=== PATIENT | male | born 1985 | race Native Hawaiian/Other Pacific Islander ===

== ENCOUNTER 2022-01-02 20:51 | Outpatient (CLI) | payer MEDICAID, SELFPAY | END 2022-01-02 20:52 | disposition home or self-care (01) | LOC: SLEEP 20:52 | PROVIDERS: PCP Student in an Organized Health Care Education/Training Program; Visit Provider Internal Medicine | DX: G47.33 Obstructive sleep apnea (adult) (pediatric) (principal); G47.10 Hypersomnia, unspecified | CPT/HCPCS: 95811 ==

== ENCOUNTER 2022-07-11 08:02 | Outpatient (CLI) | payer MEDICAID, SELFPAY ==
--- NOTE | 2022-07-11 08:15 | CRLHL7_ITS ---
For Patients: As a result of the Century Cures Act, medical imaging exams and procedure reports are released immediately into your electronic medical record. You may view this report before your referring provider. If you have questions, please contact your health care provider. Indication: Chronic left hip pain Technique: Left hip arthrogram for MRI Comparison: No comparison Findings: The indications risks and benefits were discussed with the patient who provided written and verbal informed consent. Time-out performed prior to starting procedure. Patient was prepped and draped in usual sterile manner. 3 cc 1 percent lidocaine was used for local anesthesia. 1ml contrast was used to confirm correct location. 12 mL of a combination point 2 mL gadolinium in 20 ml saline was injected into the left hip joint. Impression: Left hip arthrogram. One image saved 21 seconds fluoro time. Dictated by Whitney Rios MD @ 07/11/2022 9:43:18 AM (Electronically Signed)
--- NOTE | 2022-07-11 09:15 | MR_ITS ---
Final Report Patient: TREVOR WASHINGTON Facility:?[facility] Patient ID:?[id number] Site Patient ID:?[id number] Site :?[id number] Study:?XRay Hip Left INJECTION (DR RIOS TO READ)-07/11/2022 9:15:57 AM Ordering Physician:?Van Gallegos Final Report: Indication: Chronic left hip pain Technique: Left hip arthrogram for MRI Comparison: No comparison Findings: The indications risks and benefits were discussed with the patient who provided written and verbal informed consent. Time-out performed prior to starting procedure. Patient was prepped and draped in usual sterile manner. 3 cc 1 percent lidocaine was used for local anesthesia. 1ml contrast was used to confirm correct location. 12 mL of a combination point 2 mL gadolinium in 20 ml saline was injected into the left hip joint. Impression: Left hip arthrogram. One image saved 21 seconds fluoro time. Dictated by Whitney Rios MD @ 07/11/2022 9:43:18 AM (Electronic Signature)
== END 2022-07-11 08:03 | disposition home or self-care (01) ==
LOC: RAD 08:03
PROVIDERS: PCP Student in an Organized Health Care Education/Training Program; Visit Provider Family Medicine
DX: M25.552 Pain in left hip (principal); M25.852 Other specified joint disorders, left hip
CPT/HCPCS: 27093; 73525; 73722; 77002; A9575; Q9966

== ENCOUNTER 2024-03-18 07:30 | Outpatient (RCR) | payer BC, SELFPAY | END 2024-03-18 11:00 | disposition home or self-care (01) | PROVIDERS: PCP Student in an Organized Health Care Education/Training Program; Visit Provider Physician Assistant Surgical | DX: S63.092A Other subluxation of left wrist and hand, initial encounter (principal); Z74.09 Other reduced mobility; R53.1 Weakness; Z51.89 Encounter for other specified aftercare | CPT/HCPCS: 97110; 97140; 97530; L3763; L3919; X5282 ==

== ENCOUNTER 2024-07-13 19:20 | Outpatient (CLI) | payer BC, SELFPAY | END 2024-07-13 19:21 | disposition home or self-care (01) | PROVIDERS: PCP Student in an Organized Health Care Education/Training Program; Visit Provider Nurse Practitioner Family | DX: R53.83 Other fatigue (principal); R50.9 Fever, unspecified; R41.89 Other symptoms and signs involving cognitive functions and awareness; E55.9 Vitamin D deficiency, unspecified | CPT/HCPCS: 80053; 82306; 84443; 86140; 86618 ==

== ENCOUNTER 2025-03-03 20:35 | Emergency (ER) | payer BC, SELFPAY ==
--- OUTSIDE RECORDS SUMMARY | 2025-03-03 20:36 | XMS_ITS | Clinical Summary ---
Author Organization [facility] Address [address] [place] [id number] Care Team Providers Care Collaborating Supervising Physician Name Role Phone Milo Kaiser Primary Care Provider [phone] Allergies Active Allergy Reactions Criticality Noted Date Comments Amoxicillin *Unknown - Childhood Rxn 03/24/2019 Penicillins *Unknown - Childhood Rxn 03/24/2019 Medications CPAPIndications:OS A (obstructive sleep apnea) CPAP machine for home use at pressure 11 cmw, nasal mask x1/3month with nasal cushion x2/mo 1 Each 11 2 Active buPROPion (WELLBUTRIN XL) 300 mg Extended-Release tabletIndications: Depression, recurrent,Attentio n deficit hyperactivity disorder, combined type Take 1 Tablet (300 mg) by mouth once daily in the morning. 90 Tablet 3 4 Active busPIRone (BUSPAR) 15 mg tabletIndications: Anxiety Take 1 Tablet (15 mg) by mouth two times daily. 180 Tablet 3 4 Active naltrexone (REVIA) 50 mg tabletIndications: Alcohol use Take 2 Tablets (100 mg) by mouth once daily. 30 Tablet 3 5 Active buPROPion (WELLBUTRIN XL) 150 mg Extended-Release tabletIndications: Depression, recurrent Take 1 Tablet (150 mg) by mouth once daily in the morning. Take with 300 mg tablet. 90 Tablet 3 5 Active fenofibrate micronized (LOFIBRA) 200 mg capsuleIndications :Hypertriglyceride kari TAKE 1 CAPSULE(200 MG) BY MOUTH EVERY DAY WITH A MEAL 30 Capsule 5 Active dextroamphetamine- amphetamine (Adderall XR) 20 mg Extended-Release capsuleIndications :Attention deficit hyperactivity disorder, combined type Take 1 Capsule (20 mg) by mouth once daily. 30 Capsule 5 03/30/20 25 Active dextroamphetamine- amphetamine (Adderall XR) 20 mg Extended-Release capsuleIndications :Attention deficit hyperactivity disorder, combined type Take 1 Capsule (20 mg) by mouth once daily. 30 Capsule 5 02/29/20 25 Active Problems Problem Noted Date Diagnosed Date Subluxation of extensor carpi ulnaris tendon, le ft, sequela 11/08/2023 Adjustment disorder with depressed mood 06/05/19 22 Arthralgia of elbow 06/05/2021 Closed anterior dislocation of elbow 06/05/2021 Closed fracture of head of radius 06/05/2021 Attention deficit hyperactivity disorder, combin ed type 02/03/2021 Anxiety 05/30/2020 Depression, recurrent 05/30/2020 Encounters Date Type Department Care Team Description 02/28/2025 Travel 12/28/2024 7:15 AM CDT Office Visit [facility] [address] [place] [address] Milo Kaiser, Medication Management (Feels like medication changes are going well - cards in Nov, Sleep in Dec for upcoming visitd ) 12/27/2024 Travel 12/26/2024 Refill [facility] [address] [place] [address] Milo Kaiser DO Refill Request (Fenofibrate Micronized) 12/16/2024 Refill [facility] [address] [place] [address] Milo Kaiser, Refill Request (Fenofibrate Micronized) from Last 3 Months Immunizations Immunization Administration Dates Next Due COVID-19 VACCINE SPIKEVAX (M ODERNA 50MCG/0.5ML) 12YO+ PFS 05/24/2023 COVID-19 vaccine (PandoDaily-Bio NTech 30mcg/0.3mL) PF, MDV 04/03/2021 HepA-HepB (Twinrix) 03/26/2008,02/12/2008 Inactivated Polio Vaccine 03/26/2008 Influenza, IIV3 (Age >=3 years) 01/05/2021 Influenza, IIV4 05/24/2023,02/15/2020,03/02/2019 Influenza,CCIIV4 PRESERV FREE 01/15/2022 Meningococcal Vaccine (Menactra) 02/12/2008 Td (Age >=7 Years) 05/30/2020 Tdap 02/12/2008 Yellow Fever 03/26/2008 Family History Medical History Relation Name Comments Hyperlipidemia Father Thyroid Disease Father Hyperlipidemia Mother Relation Name Status Comments Father Alive Mother Alive Social History Tobacco Use Types Packs/Day Years Used Date Smoking Tobacco: Never Smokeless Tobacco: Never Tobacco Cessation:Counseling Given: Yes Alcohol Use Standard Drinks/Week Comments Yes 6 (1 standard drink = 0.6 oz pur e alcohol) 12/05/23 1.5 a week PHQ-2 Answer Date Recorded PHQ-2 TOTAL SCORE 2 12/28/2024 Social Connections Answer Date Recorded Do you often feel lonely or isolated from those around you? 4 02/24/2024 Alcohol Use Answer Date Recorded How often do you have a drink containing alcohol ? 3 12/28/2024 How many drinks containing a lcohol do you have on a typical day when you are drinking? 1 12/28/2024 How often do you have five or more drinks on one occasion? 1 12/28/2024 Financial Resource Strain Answer Date R ecorded Difficulty of Paying Living Expenses 3 02/24/2024 Difficulty of Paying Living Expenses Not on file 02/24/2024 Food Insecurity Answer Date Recorded Do you worry your food will run out before you are able to buy more? 1 02/24/2024 Transportation Needs Answer Date Record ed Does lack of transportation keep you from medica l appointments? 1 02/24/2024 Does lack of transportation keep you from work, meetings or getting things that you need? 1 02/24/2024 Housing Stability Answer Date Recorded What is your housing situation today? 1 02/24/2024 Utilities Answer Date Recorded Do you have trouble paying f or utilities (for example, heat, electricity, water, phone)? 1 02/24/2024 Sex and Gender Information Value Date Recorded Sex Assigned at Male 06/24/2020 4:05 PM WASTE HANDLING TECHNICIAN Legal Sex Male 10:43 AM WASTE HANDLING TECHNICIAN Gender Identity Male 06/24/2020 4:05 PM WASTE HANDLING TECHNICIAN Sexual Orientation Straight 06/24/2020 4: 05 PM WASTE HANDLING TECHNICIAN Obstetrics History Last Filed Vital Signs Vital Sign Reading Time Taken Comments Blood Pressure 128/88 12/28/2024 7:26 AM CDT Pulse 79 12/28/2024 7:26 AM CDT Temperature 36.4 C (97.5 F) 11/08/2023 11:02 AM CDT Respiratory Rate 18 11/08/2023 11:0 2 AM CDT Oxygen Saturation 97% 12/28/2024 7:26 AM CDT Inhaled Oxygen Concentration - - Weight 119.7 kg (263 lb 14.4 oz) 12/28/2024 7:26 AM CDT Height 175.6 cm (5' 9.13) 11/17/2024 7:26 AM CD T Body Mass Index 38.82 11/17/2024 7:26 AM CDT Plan of Treatment Upcoming Encounters Date Type Department Care Team (Late st Contact Info) Description 03/05/2025 7:00 AM WASTE HANDLING TECHNICIAN Orders Only [facility] [address] [place] [address] [place] 03/09/2025 3:30 PM WASTE HANDLING TECHNICIAN Office Visit [facility] [address] [place] [id number] Rosalba Jonhson MD [address] [facility] [address] [place] [address] 03/31/2025 8:30 AM WASTE HANDLING TECHNICIAN Office Visit [facility] [address] [place] [address] Corbin Cardenas MD [address] [place] [address] Health Maintenance Due Date Last Done Comments Hepatitis B series for 19+ (3 of 3 - Hep B Twinrix 3-dose series) 08/24/2008 03/26/2008, 02/12/2008 HPV series for age 9-45 (1 - 3-dose SCDM series) 2013 Influenza Vaccine (#1) 2024 , 01/15/2022, 01/05/2021, Additional history exists BMI (ht and wt on same day) for age 18+ 11/17/2025 11/17/2024, 05/19/2024, 10/15/2023, Additional history exists Depression screening for age 12+ 12/28/2025 12/28/2024, 05/19/2024, 05/08/2024, Additional history exists Lipids for age 35-44 11/25/2029 11/25/2024, 05/19/2024, 05/24/2023, Additional history exists Tetanus booster 05/30/2030 05/30/2020, 02/12/2008 RSV vaccine for adults or (1 - 1-dose 75+ series) 2061 HIV for age 15-65 Completed 05/21/2022 Hepatitis C screening for age 18-79 Completed 05/21/2022 Pneumococcal series for age 6-49 Aged Out No longer eligible based on patient's age to complete this topic Procedures Procedure Name Priority Date/Time Associated Diagnosis Comments LIPID PANEL W REFLEX MEASURED LDL Routine 11/25/2024 7:20 AM CDT Hypertriglyceridemia LC HIV-1/O/2, 4TH GENERATION Routine 05/21/2022 10:46 AM WASTE HANDLING TECHNICIAN Screening for HIV (human immunodeficiency virus) LC HCV ANTIBODY RFX TO QUANT PCR Routine 05/21/2022 10:46 AM WASTE HANDLING TECHNICIAN Need for hepatitis C screening test from Last 3 Months or Most Recently Relevant to Health Maintenance Results * (ABNORMAL) LIPID PANEL W REFLEX MEASURED LDL (11/25/2024 7:20 AM CDT) CHOLESTEROL, TOTAL 229(H) <200 mg/dL [facility] HDL CHOLESTEROL 38(L) > OR = 40 mg/dL [facility] TRIGLYCERIDES 465(H) <150 mg/dL [facility] Comment: If a non-fasting specimen was collected, consider repeat triglyceride testing on a fasting specimen if clinically indicated. Neeru et al. J. of Clin. Lipidol. 2015;9:129-169. LDL-CHOLESTEROL [facility] Comment: LDL cholesterol not calculated. Triglyceride levels greater than 400 mg/dL invalidate calculated LDL results. Reference range: <100 Desirable range <100 mg/dL for primary prevention; <70 mg/dL for patients with CHD or diabetic patients with > or = 2 CHD risk factors. LDL-C is now calculated using the Oswald-Bianca calculation, which is a validated novel method providing better accuracy than the Friedewald equation in the estimation of LDL-C. Oswald SS et al. JANIYA. 2013;310(19): 6259-7848 (http://education.Purch/faq/WET437) CHOL/HDLC RATIO 6.0(H) <5.0 (calc) [facility] NON HDL CHOLESTEROL 191(H) <130 mg/dL (calc) [facility] Comment: For patients with diabetes plus 1 major ASCVD risk factor, treating to a non-HDL-C goal of <100 mg/dL (LDL-C of <70 mg/dL) is considered a therapeutic option. Blood BLOOD SPECIMEN / Unknown 11/25/2024 7:20 AM CDT 11/25/2024 7:20 AM CDT us Milo Kaiser DO CHEMISTRY Final Result [facility] [address] [place] [address], [facility] [address] [place] [address] * LC HCV ANTIBODY RFX TO QUANT PCR (05/21/2022 10:46 AM WASTE HANDLING TECHNICIAN) HCV Ab <0.1 0.0 - 0.9 s/co ratio 05/23/2022 10:07 PM WASTE HANDLING TECHNICIAN [facility] Blood BLOOD SPECIMEN / Unknown Venipuncture / Unknown 05/21/2022 10:46 AM WASTE HANDLING TECHNICIAN 05/21/2022 10:49 AM WASTE HANDLING TECHNICIAN Narrative [facility] - 05/23/2022 10:07 PM WASTE HANDLING TECHNICIAN Performed at: [address] [place] [id number] Speech Therapist Early Intervention: Dileep Persaud MD, Phone: [phone] us Adei Abdiqra DO LABORATORY Final Result Performing Organization Address City/[facility]/ZIP Co de Phone Number [facility] ([facility]) [address] [place] [address], * LC HIV-1/O/2, 4TH GENERATION (05/21/2022 10:46 AM WASTE HANDLING TECHNICIAN) HIV Scr 4th Gen Non Reactive Non Reactive 05/23/2022 2:08 PM WASTE HANDLING TECHNICIAN [facility] ([facility]) Comment: HIV Negative HIV-1/HIV-2 antibodies and HIV-1 p24 antigen were NOT detected. There is no laboratory evidence of HIV infection. Blood BLOOD SPECIMEN / Unknown Venipuncture / Unknown 05/21/2022 10:46 AM WASTE HANDLING TECHNICIAN 05/21/2022 10:49 AM WASTE HANDLING TECHNICIAN Narrative [facility] ([facility] - 05/23/2022 2:08 PM WASTE HANDLING TECHNICIAN Performed at: [address] [place] [id number] Speech Therapist Early Intervention: Dileep Persaud MD, Phone: [phone] us Adei Awilda DO LABORATORY Final Result Performing Organization Address City/[facility]/ZIP Co de Phone Number [facility] ([facility]) [address] [place] [address] from Last 3 Months or Most Recently Relevant to Health Maintenance Insurance [facility] Care Teams Collaborating Supervising Physician Relationship Specialty Start Date End Date Milo Kaiser DO [address] [place] [address] PCP - General Family Practice 05/15/22
--- NOTE | 2025-03-03 20:37 | ED.GENADULT ---
HPI - General Adult General Time Seen by Provider: 20:37 Date Seen: 03/03/25 Chief complaint: Extremity Pain/Injury, Upper Stated complaint: elbow injury Time Seen by Provider: 03/03/25 20:37 Source: patient Mode of arrival: ambulatory Limitations: no limitations History of Present Illness HPI narrative: 31-year-old male who comes in today with concern for elbow injury. Patient was at [employer], when he got home he felt an itchy spot on his right elbow and felt like there was some swelling on the tip of the elbow. No injury, does not hurt. He is convinced that this was not there previously. Related Data Home Medications ?Medication ?Instructions ?Recorded ?Confirmed bupropion HCl 300 mg 24 hr tablet, 300 mg PO DAILY 07/13/24 03/03/25 extended release buspirone 15 mg tablet mg PO DIRECTED 07/13/24 07/13/24 dextroamphetamine-amphetamine ER 1 cap PO QAM 07/13/24 03/03/25 15 mg 24hr capsule,extend release fenofibrate micronized 200 mg 200 mg PO DAILY 07/13/24 03/03/25 capsule naltrexone 50 mg tablet 50 mg PO DAILY 07/13/24 07/13/24 Allergies Allergy/AdvReac Type Severity Reaction Status Date / Time Penicillins Allergy Unknown Verified 03/03/25 20:41 amoxicillin AdvReac Unknown Verified 03/03/25 20:41 PFSH PFS Surgical History H/O elbow surgery ?Z98.890 - Other specified postprocedural states (ICD-10) H/O wrist surgery ?Z98.890 - Other specified postprocedural states (ICD-10) Social History Smoking Status: Never smoker Non-prescribed substance use: denies use Exam Narrative: Exam Narrative: General: well nourished , NAD Head: Atraumatic and normocephalic ENT: External ears and external nose are normal Eyes: Conjunctiva clear, pupils are equal reactive, external ocular motions are intact Neck: Full spontaneous range of motion of the neck Lungs: No respiratory distress Musculoskeletal: Firm nontender nodule in the right olecranon. Full flexion and extension at the elbow, no pain with pronation supination, no redness or warmth Neurologic: No gross focal neurologic deficits Skin: No rashes Psych: Mood and affect are appropriate Const: Vital Signs, click to edit/add: Vital Signs - 24 hr 03/03/25 20:39 Temperature 97.6 F Pulse Rate [Pulse Oximeter] 101 H Respiratory Rate 18 Blood Pressure [Ri ght Upper Arm] 149/81 H Pulse Oximetry 98 Oxygen Delivery Me thod Room Air Course Course ED Course: Additional records reviewed: Urgent care note June 2024 when patient was seen for upper respiratory symptoms including fatigue, including headache, fuzzy thinking. No focal findings on exam and patient was discharged. Additional history from: Care impacted by: Chronic pain the wrist and knee, depression, anxiety Testing considered but not performed: See ED course Patient seen and examined with concern for a lump on his right elbow. On the right olecranon, there is a firm protuberance that is nontender, not erythematous, patient has full range of motion with flexion, extension, supination and pronation. X-ray ordered, possible early olecranon bursitis. Reevaluation(s) Time of Reevaluation #1: 20:59 Reevaluation #1: X-ray independently interpreted by me negative for acute findings Time of Reevaluation #2: 21:19 Reevaluation #2: Findings/Impression: No acute radiographic abnormality appreciated. Vital Signs Vital signs: Initial Vital Signs Temperature 97.6 F 03/03/25 20:39 Temperature Source Temporal Artery Scan 03/03/25 20:39 Pulse Rate 101 H 03/03/25 20:39 Respiratory Rate 18 03/03/25 20:39 Blood Pressure 149/81 H 03/03/25 20:39 Blood Pressure Mean 103 03/03/25 20:39 Blood Pressure Position Sitting 03/03/25 20:39 Pulse Oximetry 98 03/03/25 20:39 Oxygen Delivery Method Room Air 03/03/25 20:39 Vital Signs Temperature 97.6 F 03/03/25 20:39 Pulse Rate 101 H 03/03/25 20:39 Respiratory Rate 18 03/03/25 20:39 Blood Pressure 149/81 H 03/03/25 20:39 Pulse Oximetry 98 03/03/25 20:39 Oxygen Delivery Method Room Air 03/03/25 20:39 Temperature 97.6 F 03/03/25 20:39 Pulse Rate 101 H 03/03/25 20:39 Respiratory Rate 18 03/03/25 20:39 Blood Pressure 149/81 H 03/03/25 20:39 Pulse Oximetry 98 03/03/25 20:39 Oxygen Delivery Method Room Air 03/03/25 20:39 Discharge Plan Discharge Clinical Impression: Bursitis, olecranon Patient Disposition: Home, Self-Care Condition: Stable Instructions: Elbow Bursitis (ED) Additional Instructions: Activity as tolerated, Tylenol or ibuprofen as needed for pain Activity Level: No strenuous activity Discharge Diet: Regular Prescriptions: No Action dextroamphetamine-amphetamine 15 mg capsule,extended release 24hr 1 cap PO QAM fenofibrate micronized 200 mg capsule 200 mg PO DAILY naltrexone 50 mg tablet 50 mg PO DAILY bupropion HCl 300 mg tablet extended release 24 hr 300 mg PO DAILY buspirone 15 mg tablet PO DIRECTED Follow Up/Referrals: ANNELIESE MARADIAGA DO [Primary Care Provider, Family Practice] Stand Alone Forms: MyHealth Info Instructions
[2025-03-03 20:39] VITALS: BP 149/81; PULSE 101; RESP 18; TEMP 36.4; O2SAT 98; BMI 38.4
--- NOTE | 2025-03-03 20:45 | CRLHL7_ITS ---
For Patients: As a result of the Cures Act, medical imaging exams and procedure reports are released immediately into your electronic medical record. You may view this report before your referring provider. If you have questions, please contact your health care provider. Indication: Pain, swelling Technique: Three views of the right elbow Comparison: None Findings/Impression: No acute radiographic abnormality appreciated. Dictated by Kristofer Gusman MD @ 03/03/2025 9:06:27 PM (Electronically Signed)
[2025-03-03 21:28] VITALS: PULSE 88; RESP 16; TEMP 36.7; O2SAT 98
== END 2025-03-03 21:33 | disposition home or self-care (01) ==
LOC: ED 21:18
PROVIDERS: Emergency Provider Family Medicine; PCP Student in an Organized Health Care Education/Training Program
DX: M70.21 Olecranon bursitis, right elbow (principal); Y93.59 Activity, other involving other sports and athletics played individually
CPT/HCPCS: 73080; 99283; 99284